=== PATIENT | male | born 1965 | race Caucasian/White ===

== ENCOUNTER 2025-08-21 12:05 | Emergency (ER) | payer OTHER, SELFPAY ==
--- OUTSIDE RECORDS SUMMARY | 2023-05-31 06:44 | XMS_ITS | Encounter Summary ---
Author Organization [facility] Healthcare Address [address] [place] [address] Care Team Providers Care Pond Sawyer Name Role Phone JavierDeisy PT Unavailable Unavailable Arron Sherwood Primary Care Provider Reason for Visit * Diagnostic Imaging (Routine) - Closed Specialty Diagnoses / Procedures Referred By La escobedo Referred To Contact Diagnoses Right knee pain, unspecified chronicity Procedures XR Pelvis 1 or 2 Views Robinson Tucker PA [address] [place] [address] Phone: tel: fax: Referral ID Status Reason Start Date Expiration Date Visits Re quested Visits Authorized [id number] Closed 05/31/2023 06/29/2024 1 1 Encounter Details Date Type Department Care Team (Late st Contact Info) Description 05/31/2023 7:44 AM CDT Hospital Encounter [facility] Medical Group Orthopedics and Sports Medicine [address] [facility] [address] [id number] Social History Tobacco Use Types Packs/Day Years Used Date Smoking Tobacco: Former Cigarettes 1 27 S tarted: 08/27/1984 Smokeless Tobacco: Former Alcohol Use Standard Drinks/Week Comments Yes 0 (1 standard drink = 0.6 oz pur e alcohol) PHQ-2 Answer Date Recorded PHQ-2 Total Score (If total score is 3 or more points, staff should administer the PHQ-9) 0 05/08/2025 AUDIT-C Answer Date Recorded Q1: How often do you have a drink containing alc ohol? Monthly or less 05/08/2025 Q2: How many drinks containi ng alcohol do you have on a typical day when you are drinking? 1 or 2 05/08/2025 Q3: How often do you have si x or more drinks on one occasion? Never 05/08/2025 Personal Safety Answer Date Recorded Have you ever been in or are you currently in a harmful physical or emotional relationship or is someone making you feel afraid or unsafe? 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 Author -[facility] Behavioral [facility] Iza Rincon RN Note: Patient will establish a comfort-function goal and identify the pain level that will allow the patient to perform desired activities and achieve an acceptable quality of life. -Pain Behavioral Health Iza Rincon RN Note: Patient would like to be able to bowl and get in and out of car with less pain documented as of this encounter Procedures Procedure Name Priority Date/Time Associated Diagnosis Comments XR PELVIS 1 OR 2 VIEWS Schedule Routine, Read Routine (OP Routine) 05/31/2023 1:27 PM CDT Primary osteoarthritis of right knee documented in this encounter Results * XR Pelvis 1 or 2 Views (05/31/2023 1:27 PM CDT) Anatomical Region Laterality Modality Body, Pelvis N/A Digital Radiogra phy Narrative 06/01/2023 11:58 AM CDT X-ray of the pelvis reviewed and interpreted. There is no evidence of fracture, subluxation, or bony abnormality. Moderate degenerative changes present of bilateral hips including joint space narrowing, subchondral sclerosis, and osteophyte formation. Robinson WHEAT IMG XR PROCEDURES Deja l Result documented in this encounter Visit Diagnoses Not on filedocumented in this encounter Care Teams Pond Sawyer Relationship Specialty Start Date End Date Arron Sherwood PA [address] [place] [address] DR T[address] [place] [id number] PCP - General Internal Medicine 07/18/22 Deisy Herrera, PT Physical Therapist Physical Therapy 12/30/21 08/12/23 documented as of this encounter
--- OUTSIDE RECORDS SUMMARY | 2023-05-31 06:44 | XMS_ITS | Encounter Summary ---
Author Organization [facility] Healthcare Address [address] [place] [address] Care Team Providers Care Maintenance Shop Manager Name Role Phone JavierDeisy PT Unavailable Unavailable Arron Sherwood Primary Care Provider Encounter Details Date Type Department Care Team (Late st Contact Info) Description 05/31/2023 7:44 AM CDT Hospital Encounter 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 Author -Pain Behavioral [facility] No Iza Yanes RN Note: Patient will establish a comfort-function goal and identify the pain level that will allow the patient to perform desired activities and achieve an acceptable quality of life. -Pain Behavioral Health No Iza Yanes RN Note: Patient would like to be able to bowl and get in and out of car with less pain documented as of this encounter Procedures Procedure Name Priority Date/Time Associated Diagnosis Comments XR KNEE RIGHT 4 OR MORE VIEWS Schedule Routine, Read Routine (OP Routine) 05/31/2023 1:27 PM CDT Primary osteoarthritis of right knee documented in this encounter Results * XR Knee Right 4 or More Views (05/31/2023 1:27 PM CDT) Anatomical Region Laterality Modality Lower Extremities, Knee Right Digital Radiography Narrative 06/01/2023 12:00 PM CDT Views of the right knee were reviewed and interpreted today. No evidence fracture or destructive osseous lesion. Tricompartmental degenerative changes noted with joint space narrowing, osteophyte formation, subchondral sclerosis. Varus deformity noted. Loose body noted in lateral compartment best viewed PA view. Robinson WHEAT IMG XR PROCEDURES Deja l Result documented in this encounter Visit Diagnoses Not on filedocumented in this encounter Care Teams Maintenance Shop Manager Relationship Specialty Start Date End Date Arron Sherwood PA [address] [place] [address] DR [address] [place] [address] PCP - General Internal Medicine 07/18/22 Deisy Herrera, PT Physical Therapist Physical Therapy 12/30/21 08/12/23 documented as of this encounter
--- NOTE | ~2025-08-21 | XR_ITS ---
EXAMINATION: XR chest 2V DATE: 08/21/2025 12:36 INDICATION: Cough and shortness of breath TECHNIQUE: PA and lateral views of the chest were obtained. COMPARISON: None FINDINGS: The lungs are clear with no focal airspace opacities, pulmonary edema, pleural effusion or pneumothorax. The cardiomediastinal silhouette is normal. Mild thoracic kyphosis with moderate spondylosis and mild anterior wedging of a few lower thoracic vertebral bodies. Likely cholecystectomy clips in the upper abdomen. IMPRESSION: 1. No acute cardiopulmonary disease. Reviewed, dictated and finalized at location A. PLOYMENT SPECIALIST
--- OUTSIDE RECORDS SUMMARY | 2025-08-21 12:12 | XMS_ITS | Clinical Summary ---
Author Organization [facility] lin Address [address] [place] [address] Care Team Providers Care Power Sweeper Operator Name Role Phone Jared Stuart MD Primary Care Provi abhi Medications No known medications Social History Tobacco Use Types Packs/Day Years Used Date Smoking Tobacco: Never Assessed Sex and Gender Information Value Date Recorded Sex Assigned at Not on file Legal Sex Male 11:17 AM EDT Gender Identity Not on file Sexual Orientation Not on file Plan of Treatment Not on file Medical Devices Not on file Care Teams Power Sweeper Operator Relationship Specialty Start Date End Date Jared Stuart MD [address] [facility] [place] [phone] PCP - General Internal Medicine 06/04/20
--- OUTSIDE RECORDS SUMMARY | 2025-08-21 12:12 | XMS_ITS | Encounter Summary ---
Author Organization [facility] Address [address] [place] [address] Phone Care Team Providers Care Electrician Wiring Name Role Phone Jared Stuart MD Primary Care Provi abhi Deisy Herrera PT Unavailable Unavailable Arron Sherwood Primary Care Provider Nithin Dennis MD Unavailable [phone] Robinson Tucker Unavailable [phone] Collin García DPM Unavailable [phone] Encounter Details Date Type Department Care Team (Late st Contact Info) Description 12/26/2017 Orders Only [facility] ProviderMarjorie MD [address] [place] [address] Social History Tobacco Use Types Packs/Day Years Used Date Smoking Tobacco: Former Smokeless Tobacco: Former Alcohol Use Standard Drinks/Week Comments No 0 (1 standard drink = 0.6 oz pur e alcohol) Sex and Gender Information Value Date Recorded Sex Assigned at Not on file 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 us Historical Provider LAB BLOOD ORDERABLES Deja l Result documented in this encounter Visit Diagnoses Not on filedocumented in this encounter Care Teams Electrician Wiring Relationship Specialty Start Date End Date aJred Stuart MD PCP - General 11/24/16 07/17/22 Arron Sherwood PA [address] [facility] [address] [place] [address] PCP - General Internal Medicine 07/18/22 Deisy Herrera, PT Physical Therapist Physical Therapy 12/30/21 08/12/23 Nithin Dennis MD [address] [facility] [address] [place] [address] Surgeon Orthopedic Surgery 08/13/23 12/12/23 Robinson Tucker PA [address] [facility] [address] [place] [address] Orthopedic Surgery 09/18/23 12/12/23 Collin García DPM [address] [place] [address] [place] [address] Consulting Physician Foot and Ankle Surg 05/08/25 [facility] Optometry 12/31/24 documented as of this encounter
--- OUTSIDE RECORDS SUMMARY | 2025-08-21 12:12 | XMS_ITS | Clinical Summary ---
Author Organization [facility] Marce Duarte Address [address] [facility] [place] [address] Care Team Providers Care Hand Candy Cutter Name Role Phone Unavailable Primary Care Provider Unavailabl e Allergies Active Allergy Reactions Criticality Noted Date Comments Iodinated Contrast Media Other (See Comments) High 02/18/2025 Reaction: Erythema, , Iodine Hives High 02/18/2025 Reaction: Flushing, ok with topical iodine Lisinopril Itching,Other (See Comments) Low 02/18/2025 Reaction: Itching, , Reaction: Itching, , Reaction: Itching, Penicillins Hives,Itching,Other (See Comments) High 02/18/2025 Reaction: Rash, , , , Reaction: Hives, Itching, Medications aspirin (ECOTRIN EC) 81 mg Tablet, Delayed Release (E.C.) Take 81 mg by mouth daily. Active citalopram (CeleXA) 20 mg tablet Take 20 mg by mouth daily. 5 Active empagliflozin (JARDIANCE) 25 mg tablet Take 25 mg by mouth daily. 4 Active fluticasone propionate (FLONASE) 50 mcg/spray [place], Suspension nasal inhaler Administer 2 Sprays in each nostril daily. 2 Active hydroCHLOROthia zide 12.5 mg tablet Take 12.5 mg by mouth daily. 5 Active irbesartan-hydr oCHLOROthiazide (AVALIDE) 300-12.5 mg tablet Take 1 Tablet by mouth daily. 5 Active rosuvastatin (CRESTOR) 40 mg tablet Take 40 mg by mouth daily. 5 Active Active Problems No known active problems Encounters Date Type Department Care Team Description 07/14/2025 External Device Data [facility] ABSTRACTION Provider, Abstract 06/30/2025 External Device Data [facility] ABSTRACTION Provider, Abstract 06/24/2025 External Device Data [facility] ABSTRACTION Provider, Abstract 06/23/2025 External Device Data [facility] ABSTRACTION Provider, Abstract from Last 3 Months Social History Tobacco Use Types Packs/Day Years Used Date Smoking Tobacco: Never Assessed Sex and Gender Information Value Date Recorded Sex Assigned at Not on file Legal Sex Male 3:02 PM CDT Gender Identity Not on file Sexual Orientation Not on file Last Filed Vital Signs Vital Sign Reading Time Taken Comments Blood Pressure 102/60 02/18/2025 3:29 PM CDT Pulse 86 02/18/2025 3:29 PM CDT Temperature 36.8 C (98.3 F) 02/18/2025 3:29 PM CDT Respiratory Rate 16 02/18/2025 3:29 PM CDT Oxygen Saturation 96% 02/18/2025 3:29 PM CDT Inhaled Oxygen Concentration - - Weight 126.6 kg (279 lb) 02/18/2025 3:29 PM CDT Height 180.3 cm (5' 11) 02/18/2025 3:29 PM CDT Body Mass Index 38.91 02/18/2025 3:29 PM CDT Plan of Treatment Health Maintenance Due Date Last Done Comments DIABETES ANNUAL RETINAL EXAM 1984 DIABETES MICROALBUMIN ANNUAL SCREEN 1984 LDL CHOLESTEROL ANNUAL 1984 HEPATITIS B VACCINES (1 of 3 - 19+ 3-dose series) 1985 FIT-DNA Q 3 years 2011 FIT/FOBT Q 1 year 2011 Flex Sig/CT Colonography Q 5 years 2011 ZOSTER VACCINE (1 of 2) 2016 DTAP/TDAP/TD VACCINES (3 - T d or Tdap) 09/11/2023 09/11/2013, 04/23/2009 INFLUENZA VACCINE (#1) 2025 DIABETES HBA1C Q 6 MONTHS 06/29/2025 12/27/2024 DIABETES ANNUAL FOOT EXAM 12/31/2025 12/31/2024 COLORECTAL SCREENING 06/19/2034 06/19/2024, 06/19/2024, 01/15/2019, Additional history exists Colorectal Cancer Screening 06/19/2034 Insurance [facility] [id number]
--- OUTSIDE RECORDS SUMMARY | 2025-08-21 12:12 | XMS_ITS | Encounter Summary ---
Author Organization [facility] Address [address] [place] [address] Care Team Providers Care Tool Room Supervisor Name Role Phone Unavailable Primary Care Provider Unavailabl e Encounter Details Date Type Department Care Team (Late st Contact Info) Description 10/13/2021 Lab Requisition [facility] [address] [facility] [place] [place] [phone] Angel Robles Jr., MD [address] [facility] [address] [place] [address] Social History Tobacco Use Types Packs/Day Years Used Date Smoking Tobacco: Never Assessed Sex and Gender Information Value Date Recorded Sex Assigned at Not on file Legal Sex Male 11:29 AM LEAF BINNER Gender Identity Not on file Sexual Orientation Not on file documented as of this encounter Plan of Treatment Not on file documented as of this encounter Procedures Procedure Name Priority Date/Time Associated Diagnosis Comments DERMATOPATHOLOGY Routine 10/12/2021 12:0 0 AM LEAF BINNER documented in this encounter Results * DERMATOPATHOLOGY (10/12/2021 12:00 AM LEAF BINNER) Case Report Dermatopathology Report Case: [id number] Authorizing Provider: Angel Robles Jr., MD Collected: 10/12/2021 12:00 AM Ordering Location: [facility] Received: 10/13/2021 11:44 AM Pathologist: Adrianna Rdz MD Specimen: Skin, left distal radial palmar index finger 2 4:31 PM [facility] Final Diagnosis Specimen A. SKIN, left distal radial palmar index finger: VERRUCA VULGARIS (B07.8) 2 4:31 PM [facility] at [address] Clinical History Verruca vulgaris. 2 4:31 PM [facility] DERMATOPATH[facility]Y [facility] Gross Description Specimen A: Received is one formalin filled container labeled with the patient's name and designated left distal radial palmar index finger. The specimen consists of a shave biopsy measuring 12x9x2 mm. Jar 0. 2 4:31 PM [facility] DERMATOPATHOLOGY [facility] Microscopic Description Specimen A. SKIN, left distal radial palmar index finger: There is digitated epidermal hyperplasia, hypergranulosis, vacuolated granular layer cells, and compact hyperorthokeratosis . 2 4:31 PM [facility] DERMATOPATHOLOGY [facility]ORAT[facility] Disclaimer An external and internal positive and negative controls are appropriate for the histochemical, immunohistochemical and immunofluorescence stain(s) in this case (if any), except where stated explicitly. The performance characteristics of the stain(s) cited in this report were developed and its performance characteristic determined by the Dermatopathology Laboratory at [facility], directed by Dr. Shawn Rdz. These tests need not be, and therefore are not, approved by the [place] Food and Drug Administration. The tests are used for clinical purposes. Billing Codes Specimen Charges Stain Charges 85601 1 2 4:31 PM [facility] DERMATOPATHOLOGY [facility] Embedded Images 2 4:31 PM [facility] DERMATOPATH[facility]Y [facility] Pathology/Cytolog y TISSUE SPECIMEN FROM SKIN / Unknown 10/12/2021 10/13/2021 11:44 AM [facility] Angel Robles Jr., MD LAB - PATHOLOGY/CYTOLOG Y ORDERABLES Final Result DERMATOPATHOLOGY LABORATORY [facility] - Department of Dermatology [address], [address] [phone] documented in this encounter Visit Diagnoses Not on filedocumented in this encounter
--- OUTSIDE RECORDS SUMMARY | 2025-08-21 12:12 | XMS_ITS | Encounter Summary ---
Author Organization [facility] Healthcare Address [address] [place] [address] Care Team Providers Care Inspection Manager Name Role Phone Arron Sherwood Primary Care Provider Collin García DPM Unavailable [phone] Reason for Visit * Reason Onset Date Comments Chest Pain 08/21/2025 Shortness of Breath 08/21/2025 Encounter Details Date Type Department Care Team (Late st Contact Info) Description 08/21/2025 Nurse Triage [facility] Medical Group Primary Care at [address] [place] [address] Arron Sherwood PA [address] [place] [address] [address] [place] [address] Social History Tobacco Use Types Packs/Day Years [...] on file Legal Sex Male 11:24 PM GLOBAL VP CREATIVE + CONTENT MARKETING Gender Identity Not on file Sexual Orientation Not on file documented as of this encounter Miscellaneous Notes * Telephone Encounter - Madalyn Brown RN - 08/21/2025 10:52 AM GLOBAL VP CREATIVE + CONTENT MARKETING Access Center Nurse Triage: Reason for Conversation Chest Pain and Shortness of Breath Background ROBIN 05/08/25 I spoke to the patient's . His symptoms began suddenly on Sunday. He has sore throat pain, chest pains that radiates to his back. He is coughing frequently. No fever. +headache. Pain in his backis between the shoulder blades. He also has pain between the nipples in the middle of his chest. Healso has discomfort at the collarbone area, which is where his throat pain is. Pain in his back andchest has been constant since Sunday. He did take Muccinex DM and it did not help hardly at all. No wheezing. Pain in front of his chest (at the base of his throat) is burning and is moderate to severe. It makes it hard to swallow. He is able to swallow liquids. Distant hx of GERD but he hasn't had any problems in years. No shoulder or jaw pain. Some shortness of breath with activity but also at rest. Painacross the shoulder blades is an ache and he rates that as mild to moderate. He states this does not feel like GERD to him. Disposition indicated is ED/UCC Now or to Office with PCP approval. No same day availability in theoffice today. What do you advise? Provider contacted via secure chat for ED disposition consult. Recommendation from provider:Send toRCC/UC I discussed options with the patient and his . She will tae him to the [facility] location. Disposition Go to ED/UCC Now (or to Office With PCP Approval) Reason for Disposition Chest pain lasting longer than 5 minutes and occurred in last 3 days (72 hours) (Exception: Feels exactly the same as previously diagnosed heartburn and has accompanying sour taste in mouth.) Protocols Used Chest [id number] AL VP CREATIVE + CONTENT MARKETING * Telephone Encounter - Madalyn Brown RN - 08/21/2025 10:45 AM GLOBAL VP CREATIVE + CONTENT MARKETING Regarding: Patient's chest is hurting really bad, and his upper back along with cold like symptoms ----- Message from Chelita Allen sent at 08/21/2025 9:53 AM GLOBAL VP CREATIVE + CONTENT MARKETING ----- Symptom Based Call Chief Complaint(s): Patient's chest is hurting really bad, and his upper back along with cold like symptoms Duration: Since Sunday What type of symptom(s) is the patient experiencing? Red Flag. Is the patient concerned they are experiencing a medical emergency requiring an ambulance? No Additional Comments: Patient's Shaheed verified on HIPAA says the patient has been sick with a sore throat, bad chest pain, in the middle. He says when he takes a deep breath his back hurts. Patient has had a headache off and on. Ears have pressure in them. Trouble sleeping. Patients shaheed will be who you will speak with . Does message need to be routed? Yes-Action Needed AL VP CREATIVE + CONTENT MARKETING documented in this encounter Plan of Treatment Scheduled Procedures [...] less pain documented as of this encounter Visit Diagnoses Not on filedocumented in this encounter Care Teams Inspection Manager Relationship Specialty Start Date End Date Arron Sherwood PA [address] [place] [address] [place] [address] PCP - General Internal Medicine 07/18/22 Collin García DPM [address] [facility] [place] [address] Consulting Physician Foot and Ankle Surg 05/08/25 [facility] Optometry 12/31/24 documented as of this encounter
--- OUTSIDE RECORDS SUMMARY | 2025-08-21 12:12 | XMS_ITS | Clinical Summary ---
Author Organization [facility] Address [address] [place] [address] Care Team Providers Care Plan Manager Name Role Phone Unavailable Primary Care Provider Unavailabl e Source Comments [facility],non-owned Affiliates and Associated Physician Practices is amultiple site organization consisting of ambulatory clinics and hospital sitesin [place], [place], [place] and [place]. This disclosure is being madepursuant to the Care Everywhere program and may not contain all information available regarding this patient. Last updated 18.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 Gender Identity Not on file Sexual Orientation Not on file Plan of Treatment Health Maintenance Due Date Last Done Comments COLOGUARD (AGES 45-75) - COL ON CA SCREENING 1966 COLON MONITORING 1966 COLONOSCOPY - COLON CA SCREENING 1966 CT COLONOGRAPHY - COLON CA SCREENING 1966 Colorectal Cancer Screening 1966 FIT - COLON CA SCREENING 1966 FLEX SIG - COLON CA SCREENING 1966 LIPID TESTING 1966 HIV SCREENING 1981 HEPATITIS C SCREENING 09/12/1984 DTAP/TDAP/TD VACCINES (1 - Tdap) 1985 HEPATITIS B VACCINE (1 of 3 - 19+ 3-dose series) 1985 PNEUMOCOCCAL VACCINE 50+ (1 of 1 - PCV) 2016 ZOSTER VACCINE (1 of 2) 2016 DEPRESSION SCREENING 08/27/2024 COVID-19 VACCINE (1 - 2024-2 6 season) 2025 INFLUENZA VACCINE (#1) 2025 HIB VACCINE Aged Out No longer eligi ble based on patient's age to complete this topic HPV VACCINE Aged Out No longer eligi ble based on patient's age to complete this topic MENINGOCOCCAL (Group B) VACC INE SHARED DECISION-MAKING Aged Out No longer eligibl e based on patient's age to complete this topic MENINGOCOCCAL GROUPS A/C/Y/W VACCINE Aged Out No longer eligible b ased on patient's age to complete this topic Insurance
--- OUTSIDE RECORDS SUMMARY | 2025-08-21 12:12 | XMS_ITS | Clinical Summary ---
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 Name Role Phone Lico Sherwood Primary Care Provider Collin García DPM Unavailable [phone] Allergies Active Allergy Reactions Criticality Noted Date Comments Iodinated Contrast Media Other (See comments) High Reaction: Erythema, , Iodine Flushing (skin) High Reaction: Flushing, ok with topical iodine Lisinopril Other (See comments),Itching Low Reaction: Itching, , Reaction: Itching, , Reaction: Itching, Penicillins Other (See comments),Hives,Itch ing High Reaction: Rash, , , , Reaction: Hives, Itching, Medications cholecalciferol (VITAMIN D-3) 2000 unit tablet 1 po q day 90 tablet 3 1 Active fluticasone propionate (FLONASE) 50 mcg/actuation nasal spray Administer 2 sprays into each nostril daily 1 each 2 Active aspirin 81 mg enteric coated tablet Take 1 tablet (81 mg total) by mouth daily Active rosuvastatin (CRESTOR) 40 mg tablet Take 1 tablet (40 mg total) by mouth daily 90 tablet 3 5 Active citalopram (CeleXA) 20 mg tablet TAKE 1 TABLET DAILY 90 tablet 3 5 Active irbesartan-hydr oCHLOROthiazide (AVALIDE) 300-12.5 mg per tablet TAKE 1 TABLET DAILY 90 tablet 3 5 Active empagliflozin (JARDIANCE) 25 mg tabletIndicatio ns:type 2 diabetes mellitus Take 1 tablet (25 mg total) by mouth daily Replaces 10 mg on next fill 90 tablet 3 5 Active ezetimibe (ZETIA) 10 mg tablet TAKE 1 TABLET DAILY 90 tablet 3 5 Active Active Problems Problem Noted Date Diagnosed Date Class 2 severe obesity due t o excess calories with serious comorbidity and body mass index (BMI) of 39.0 to 39.9 in adult 09/01/2024 History of colon polyps 03/06/2024 PADMA (generalized anxiety disorder) 12/13/2023 Complex tear of medial meniscus of right knee Atherosclerosis of aorta 08/13/2023 Pure hypercholesterolemia 08/11/2022 Assessment & Plan (05/08/2025 7:23 AM CDT): Counseled on heart healthy diet exercise Assessment & Plan (12/31/2024 12:49 PM CDT): Counseled on heart healthy diet, exercise Former smoker 08/10/2022 Contusion of left leg, subsequent encounter 11/26 Degenerative lumbar spinal stenosis 01/12/2021 DDD (degenerative disc disease), lumbar 01/07/20 21 Lumbar radiculopathy 12/01/2020 Insomnia secondary to chronic pain 12/01/2020 Chronic bilateral low back pain without sciatica 11/09/2020 Assessment & Plan (11/09/2020 10:17 AM CDT): Low back for months and referral to l ant Thigh if stand awahile trial pt and see if helps pain Ref erral next. Prior xry difuse djd in t and upper l spine. Physical exam, annual 07/06/2020 Assessment & Plan (07/20/2021 11:23 AM [employer]): Well exam low fall risk . depession screen Nl and cognitive scrren nl colon up to date. psa up aot date. Declines flu shots And hac covid shots Consider puenmin Shots. ekg axis -8, rate 68 nsr left axis other lares nl Assessment & Plan (07/06/2020 10:09 AM [employer]): Low fal risk derpison screen nl cog screen nl up to date on Colon pxsaz on return declines flu shots. Not sure if nataliia take a covid rashard as had. Colon adenoma 12/04/2018 Assessment & Plan (12/04/2018 3:43 PM CDT): Repeat 2 yrs Abnormal LFTs 08/07/2018 Assessment & Plan (04/16/2019 4:18 PM CDT): Near nl with wt off Assessment & Plan (12/04/2018 3:41 PM CDT): Alt mildly up at 61 and stable. Risk for scarring discussed Assessment & Plan (08/07/2018 3:21 PM [employer]): Alt drooped from 60 to 50 and ast droopped to nl as well so diet has worked Type 2 diabetes mellitus with hyperlipidemia Assessment & Plan (05/08/2025 7:21 AM CDT): The patient was counseled on a heart-healthy, diabetic-friendly diet, as well as life-style modification. Education provided on the diagnosis and risks of the disease. We will continue to monitor routine labs. Additionally, the patient was counseled on routine diabetic eye exams, foot exams, and other preventive care. Assessment & Plan (12/31/2024 12:48 PM CDT): The patient was counseled on a heart-healthy, diabetic-friendly diet, as well as life-style modification. Education provided on the diagnosis and risks of the disease. We will continue to monitor routine labs. Additionally, the patient was counseled on routine diabetic eye exams, foot exams, and other preventive care. Assessment & Plan (09/01/2024 8:54 AM [employer]): The patient was counseled on a heart-healthy, diabetic-friendly diet, as well as life-style modification. Education provided on the diagnosis and risks of the disease. We will continue to monitor routine labs. Additionally, the patient was counseled on routine diabetic eye exams, foot exams, and other preventive care. Assessment & Plan (05/05/2024 9:00 AM CDT): The patient was counseled on a heart-healthy, diabetic-friendly diet, as well as life-style modification. Education provided on the diagnosis and risks of the disease. We will continue to monitor routine labs. Additionally, the patient was counseled on routine diabetic eye exams, foot exams, and other preventive care. Assessment & Plan (04/21/2024 9:32 AM CDT): The patient was counseled on a heart-healthy, diabetic-friendly diet, as well as life-style modification. Education provided on the diagnosis and risks of the disease. We will continue to monitor routine labs. Additionally, the patient was counseled on routine diabetic eye exams, foot exams, and other preventive care. Assessment & Plan (12/13/2023 8:51 AM CDT): The patient was counseled on a heart-healthy, diabetic-friendly diet, as well as life-style modification. Education provided on the diagnosis and risks of the disease. We will continue to monitor routine labs. Additionally, the patient was counseled on routine diabetic eye exams, foot exams, and other preventive care. Assessment & Plan (08/13/2023 7:50 AM [employer]): The patient was counseled on a heart-healthy, diabetic-friendly diet, as well as life-style modification. Education provided on the diagnosis and risks of the disease. We will continue to monitor routine labs. Additionally, the patient was counseled on routine diabetic eye exams, foot exams, and other preventive care. Assessment & Plan (02/09/2023 7:41 AM CDT): The patient was counseled on a heart-healthy, diabetic-friendly diet, as well as life-style modification. Education provided on the diagnosis and risks of the disease. We will continue to monitor routine labs. Additionally, He was counseled on routine diabetic eye exams, foot exams, and other preventive care. Assessment & Plan (08/11/2022 7:52 AM [employer]): The patient was counseled on a heart-healthy, diabetic-friendly diet, as well as life-style modification. Education provided on the diagnosis and risks of the disease. We will continue to monitor routine labs. Additionally, the patient was counseled on routine diabetic eye exams, foot exams, and other preventive care. Assessment & Plan (04/10/2022 3:11 PM CDT): The patient was counseled on a heart-healthy, diabetic-friendly diet, as well as life-style modification. Education provided on the diagnosis and risks of the disease. We will continue to monitor routine labs. Additionally, He was counseled on routine diabetic eye exams, foot exams, and other preventive care. Assessment & Plan (12/08/2021 3:52 PM CDT): ldl at 645 and great and keep tight given risk Your cholesterol in the form of ldl (bad) cholesterol,hdl(good) cholesterol and triglycerides are monitored. The triglycerides respond to reduction/controll of your simple carbs/sugars In such items as sugared soda/sweet tea along with fruit juices(containing natural sugar) even if no added sugar is added. LDL cholesterol is reduced with reducing daily intake of fats and rashard. saturated fats. The monosaturated fats like olive oil are not harmful except in the calories they contained. Whole milk cheese needs to be remembered along with whole milk products And limited. Assessment & Plan (11/23/2021 10:02 AM CDT): Watch diet given steroidsgiven and effects on sugar and be rashard careful Assessment & Plan (07/20/2021 11:15 AM [employer]): a1c at 6.0 and contorlleld sdiscused injectable trulicity or similar and not interested. Given card issue will suggest jareince 10 to start ldl at 49 and great. Your cholesterol in the form of ldl (bad) cholesterol,hdl(good) cholesterol and triglycerides are monitored. The triglycerides respond to reduction/controll of your simple carbs/sugars In such items as sugared soda/sweet tea along with fruit juices(containing natural sugar) even if no added sugar is added. LDL cholesterol is reduced with reducing daily intake of fats and rashard. saturated fats. The monosaturated fats like olive oil are not harmful except in the calories they contained. Whole milk cheese needs to be remembered along with whole milk products And limited.Diabetes management or controll revolves around several core concepts : weight controll,controlling the intake of rapidly absorbed sugars(read simple carbs that get rapidly absorbed such as sweetened tea,sugared soda,fruit juices or portions of fruit over 1/2 cup at a time) as well at the need to increase the sugar burned up through an n increase in your baseline activity.Breads,potatotes(white,yellow,sweet are all the same),most cereals and noodles all breakdown to sugar rapidly. This rapid breakdown or absorption challenges the body into handling this surge of sugar. The more these factors are controlled the more the sugar will be controlled. Assessment & Plan (03/23/2021 10:42 AM CDT): a1c droopepd f rom 6.3 to 5.8 and wnt h ere or lower and ckep meds ssame. ldl at 43 and alst 53 so Great for cardiac protection and con tmeds as onYour cholesterol in the form of ldl (bad) cholesterol,hdl(good) cholesterol and triglycerides are monitored. The triglycerides respond to reduction/controll of your simple carbs/sugars In such items as sugared soda/sweet tea along with fruit juices(containing natural sugar) even if no added sugar is added. LDL cholesterol is reduced with reducing daily intake of fats and rashard. saturated fats. The monosaturated fats like olive oil are not harmful except in the calories they contained. Whole milk cheese needs to be remembered along with whole milk products And limited.Diabetes management or controll revolves around several core concepts : weight controll,controlling the intake of rapidly absorbed sugars(read simple carbs that get rapidly absorbed such as sweetened tea,sugared soda,fruit juices or portions of fruit over 1/2 cup at a time) as well at the need to increase the sugar burned up through an n increase in your baseline activity.Breads,potatotes(white,yellow,sweet are all the same),most cereals and noodles all breakdown to sugar rapidly. This rapid breakdown or absorption challenges the body into handling this surge of sugar. The more these factors are controlled the more the sugar will be controlled. Assessment & Plan (11/09/2020 10:20 AM CDT): ldl at 53 and great and no chagsd in medsd. Work on diet and cont medsYour cholesterol in the form of ldl (bad) cholesterol,hdl(good) cholesterol and triglycerides are monitored. The triglycerides respond to reduction/controll of your simple carbs/sugars In such items as sugared soda/sweet tea along with fruit juices(containing natural sugar) even if no added sugar is added. LDL cholesterol is reduced with reducing daily intake of fats and rashard. saturated fats. The monosaturated fats like olive oil are not harmful except in the calories they contained. Whole milk cheese needs to be remembered along with whole milk products And limited. Assessment & Plan (07/06/2020 10:03 AM [employer]): ldl at 60 and good and nochazgs in meds . Your cholesterol in the form of ldl (bad) cholesterol,hdl(good) cholesterol and triglycerides are monitored. The triglycerides respond to reduction/controll of your simple carbs/sugars In such items as sugared soda/sweet tea along with fruit juices(containing natural sugar) even if no added sugar is added. LDL cholesterol is reduced with reducing daily intake of fats and rashard. saturated fats. The monosaturated fats like olive oil are not harmful except in the calories they contained. Whole milk cheese needs to be remembered along with whole milk products And limited. Assessment & Plan (02/26/2020 8:11 AM CDT): The patient was counseled on a heart-healthy, diabetic-friendly diet, as well as life-style modification. Education provided on the diagnosis and risks of the disease. We will continue to monitor routine labs. Additionally, He was counseled on routine diabetic eye exams, foot exams, and other preventive care. Assessment & Plan (04/16/2019 4:21 PM CDT): ldl dramatic drop to 68 and cont here or drop to get even lower. On fulqetia and crestor 40 alreadyYour cholesterol in the form of ldl (bad) cholesterol,hdl(good) cholesterol and triglycerides are monitored. The triglycerides respond to reduction/controll of your simple carbs/sugars In such items as sugared soda/sweet tea along with fruit juices(containing natural sugar) even if no added sugar is added. LDL cholesterol is reduced with reducing daily intake of fats and rashard. saturated fats. The monosaturated fats like olive oil are not harmful except in the calories they contained. Whole milk cheese needs to be remembered along with whole milk products And limited. Assessment & Plan (12/04/2018 3:40 PM CDT): ldl at 129 and on 40 crestor. Add zetia 20 and see if can't get to 100 or less. Your cholesterol in the form of ldl (bad) cholesterol,hdl(good) cholesterol and triglycerides are monitored. The triglycerides respond to reduction/controll of your simple carbs/sugars In such items as sugared soda/sweet tea along with fruit juices(containing natural sugar) even if no added sugar is added. LDL cholesterol is reduced with reducing daily intake of fats and rashard. saturated fats. The monosaturated fats like olive oil are not harmful except in the calories they contained. Whole milk cheese needs to be remembered along with whole milk products And limited. Assessment & Plan (08/07/2018 3:22 PM [employer]): ldl t 99 and Barely ok on 40mg creastor and watch dieet as will need to add meds if not aboe to drop any.Your cholesterol in the form of ldl (bad) cholesterol,hdl(good) cholesterol and triglycerides are monitored. The triglycerides respond to reduction/controll of your simple carbs/sugars In such items as sugared soda/sweet tea along with fruit juices(containing natural sugar) even if no added sugar is added. LDL cholesterol is reduced with reducing daily intake of fats and rashard. saturated fats. The monosaturated fats like olive oil are not harmful except in the calories they contained. Whole milk cheese needs to be remembered along with whole milk products And limited. Assessment & Plan (04/10/2018 6:15 PM CDT): ldl at 92 andc less then 100. hdl 39. The a1c droped to 5.9 g fro. 6l6. Great and keep it upYour cholesterol in the form of ldl (bad) cholesterol,hdl(good) cholesterol and triglycerides are monitored. The triglycerides respond to reduction/controll of your simple carbs/sugars In such items as sugared soda/sweet tea along with fruit juices(containing natural sugar) even if no added sugar is added. LDL cholesterol is reduced with reducing daily intake of fats and rashard. saturated fats. The monosaturated fats like olive oil are not harmful except in the calories they contained. Whole milk cheese needs to be remembered along with whole milk products And limited.Morbid obesity is a bmi of 40 or more. Targeted weight loss with portion controll(calorie restriction) ,increased basal activity Levels along with adding an exercise program to lead to gradual weight loss,.Any program of change from weight watchers. To [facility] [facility] system along with others work. Nocturia 06/18/2017 Assessment & Plan (08/07/2018 3:24 PM [employer]): Check psa on return Hypertension associated with diabetes 2015 Overview (11/29/2016): BENIGN HYPERTENSION Assessment & Plan (05/08/2025 7:21 AM CDT): Recommend DASH diet, heart healthy lifestyle, exercise. Discussed the risks of hypertension. Assessment & Plan (12/31/2024 12:48 PM CDT): Recommend DASH diet, heart healthy lifestyle, exercise. Discussed the risks of hypertension. Assessment & Plan (09/01/2024 8:54 AM [employer]): Recommend DASH diet, heart healthy lifestyle, exercise. Discussed the risks of hypertension. Assessment & Plan (05/05/2024 9:00 AM CDT): Recommend DASH diet, heart healthy lifestyle, exercise. Discussed the risks of hypertension. Assessment & Plan (04/21/2024 9:32 AM CDT): Recommend DASH diet, heart healthy lifestyle, exercise. Discussed the risks of hypertension. Assessment & Plan (12/13/2023 8:52 AM CDT): Recommend DASH diet, heart healthy lifestyle, exercise. Discussed the risks of hypertension. Assessment & Plan (08/13/2023 7:50 AM [employer]): Recommend DASH diet, heart healthy lifestyle, exercise. Discussed the risks of hypertension. Assessment & Plan (02/09/2023 7:42 AM CDT): Recommend DASH diet, heart healthy lifestyle, exercise. Discussed the risks of hypertension. Assessment & Plan (08/10/2022 4:26 PM [employer]): Recommend DASH diet, heart-healthy lifestyle, exercise. Discussed the risks of hypertension. Assessment & Plan (04/10/2022 3:11 PM CDT): Recommend DASH diet, heart-healthy lifestyle, exercise. Discussed the risks of hypertension. Assessment & Plan (12/08/2021 3:51 PM CDT): The bp good and keep meds same and a1cs 6.4 and on 10 jardienc e and go to 25 and tighten sugarHypertension, Medical treament revolves around weight control, salt management, and meds when necessary. long as weight loss is necessary and you are able to drop weight we can cont to monitor the blood pressure and not add meds. Once the weight is not changing then it becomes nesessary to add meds to be able to reach the goal bp.Diabetes management or controll revolves around several core concepts : weight controll,controlling the intake of rapidly absorbed sugars(read simple carbs that get rapidly absorbed such as sweetened tea,sugared soda,fruit juices or portions of fruit over 1/2 cup at a time) as well at the need to increase the sugar burned up through an n increase in your baseline activity.Breads,potatotes(white,yellow,sweet are all the same),most cereals and noodles all breakdown to sugar rapidly. This rapid breakdown or absorption challenges the body into handling this surge of sugar. The more these factors are controlled the more the sugar will be controlled. Assessment & Plan (11/23/2021 10:02 AM CDT): Sat=kt retaining efffeddcts and bp on steroids so montiorHypertension, Medical treament revolves around weight control, salt management, and meds when necessary. long as weight loss is necessary and you are able to drop weight we can cont to monitor the blood pressure and not add meds. Once the weight is not changing then it becomes nesessary to add meds to be able to reach the goal bp.Hypertension, Medical treament revolves around weight control, salt management, and meds when necessary. long as weight loss is necessary and you are able to drop weight we can cont to monitor the blood pressure and not add meds. Once the weight is not changing then it becomes nesessary to add meds to be able to reach the goal bp. Assessment & Plan (07/20/2021 11:17 AM [employer]): The bp good and a1c 6.0 so cont meds as onHypertension, Medical treament revolves around weight control, salt management, and meds when necessary. long as weight loss is necessary and you are able to drop weight we can cont to monitor the blood pressure and not add meds. Once the weight is not changing then it becomes nesessary to add meds to be able to reach the goal bp. Assessment & Plan (03/23/2021 10:45 AM CDT): The bp better and ewxpe t to see more loss and dorp. With wt off the bp and susgar better and more will do soHypertension, Medical treament revolves around weight control, salt management, and meds when necessary. long as weight loss is necessary and you are able to drop weight we can cont to monitor the blood pressure and not add meds. Once the weight is not changing then it becomes nesessary to add meds to be able to reach the goal bp.Diabetes management or controll revolves around several core concepts : weight controll,controlling the intake of rapidly absorbed sugars(read simple carbs that get rapidly absorbed such as sweetened tea,sugared soda,fruit juices or portions of fruit over 1/2 cup at a time) as well at the need to increase the sugar burned up through an n increase in your baseline activity.Breads,potatotes(white,yellow,sweet are all the same),most cereals and noodles all breakdown to sugar rapidly. This rapid breakdown or absorption challenges the body into handling this surge of sugar. The more these factors are controlled the more the sugar will be controlled. Assessment & Plan (11/09/2020 10:19 AM CDT): The bp good and no cahds in meds and fasting Sugar 117 and check a1c on reutrn ufrine prtein nlHypertension, Medical treament revolves around weight control, salt management, and meds when necessary. long as weight loss is necessary and you are able to drop weight we can cont to monitor the blood pressure and not add meds. Once the weight is not changing then it becomes nesessary to add meds to be able to reach the goal bp.Diabetes management or controll revolves around several core concepts : weight controll,controlling the intake of rapidly absorbed sugars(read simple carbs that get rapidly absorbed such as sweetened tea,sugared soda,fruit juices or portions of fruit over 1/2 cup at a time) as well at the need to increase the sugar burned up through an n increase in your baseline activity.Breads,potatotes(white,yellow,sweet are all the same),most cereals and noodles all breakdown to sugar rapidly. This rapid breakdown or absorption challenges the body into handling this surge of sugar. The more these factors are controlled the more the sugar will be controlled. Assessment & Plan (07/06/2020 10:03 AM [employer]): The bp high nl and watch the a1c at 6.2 and good contrlllHypertension, Medical treament revolves around weight control, salt management, and meds when necessary. long as weight loss is necessary and you are able to drop weight we can cont to monitor the blood pressure and not add meds. Once the weight is not changing then it becomes nesessary to add meds to be able to reach the goal bp.Diabetes management or controll revolves around several core concepts : weight controll,controlling the intake of rapidly absorbed sugars(read simple carbs that get rapidly absorbed such as sweetened tea,sugared soda,fruit juices or portions of fruit over 1/2 cup at a time) as well at the need to increase the sugar burned up through an n increase in your baseline activity.Breads,potatotes(white,yellow,sweet are all the same),most cereals and noodles all breakdown to sugar rapidly. This rapid breakdown or absorption challenges the body into handling this surge of sugar. The more these factors are controlled the more the sugar will be controlled. Assessment & Plan (02/26/2020 8:10 AM CDT): Recommend DASH diet, heart-healthy lifestyle, exercise. Discussed the risks of hypertension. Assessment & Plan (08/21/2019 9:37 AM [employer]): Recommend DASH diet, heart healthy lifestyle, exercise. Discussed the risks of hypertension. Assessment & Plan (06/11/2019 12:02 PM CDT): Recommend DASH diet, heart-healthy lifestyle, exercise. Discussed the risks of hypertension. Assessment & Plan (04/16/2019 4:20 PM CDT): a1c to 6.1 and improved and urine proin nl. bp better with wt off and cont as doing and nataliia drop further if lose added Wt offHypertension, Medical treament revolves around weight control, salt management, and meds when necessary. long as weight loss is necessary and you are able to drop weight we can cont to monitor the blood pressure and not add meds. Once the weight is not changing then it becomes nesessary to add meds to be able to reach the goal bp.Diabetes management or controll revolves around several core concepts : weight controll,controlling the intake of rapidly absorbed sugars(read simple carbs that get rapidly absorbed such as sweetened tea,sugared soda,fruit juices or portions of fruit over 1/2 cup at a time) as well at the need to increase the sugar burned up through an n increase in your baseline activity.Breads,potatotes(white,yellow,sweet are all the same),most cereals and noodles all breakdown to sugar rapidly. This rapid breakdown or absorption challenges the body into handling this surge of sugar. The more these factors are controlled the more the sugar will be controlled. Assessment & Plan (12/04/2018 3:39 PM CDT): bp good and no ch angse, the a1c at 6.3 good. Hypertension, Medical treament revolves around weight control, salt management, and meds when necessary. long as weight loss is necessary and you are able to drop weight we can cont to monitor the blood pressure and not add meds. Once the weight is not changing then it becomes nesessary to add meds to be able to reach the goal bp.Diabetes management or controll revolves around several core concepts : weight controll,controlling the intake of rapidly absorbed sugars(read simple carbs that get rapidly absorbed such as sweetened tea,sugared soda,fruit juices or portions of fruit over 1/2 cup at a time) as well at the need to increase the sugar burned up through an n increase in your baseline activity.Breads,potatotes(white,yellow,sweet are all the same),most cereals and noodles all breakdown to sugar rapidly. This rapid breakdown or absorption challenges the body into handling this surge of sugar. The more these factors are controlled the more the sugar will be controlled. Assessment & Plan (08/07/2018 3:22 PM [employer]): bp good and a1c at 6.0 and was 5.9 but prior 6. 6. So better. Work to keep hereHypertension, Medical treament revolves around weight control, salt management, and meds when necessary. long as weight loss is necessary and you are able to drop weight we can cont to monitor the blood pressure and not add meds. Once the weight is not changing then it becomes nesessary to add meds to be able to reach the goal bp.Diabetes management or controll revolves around several core concepts : weight controll,controlling the intake of rapidly absorbed sugars(read simple carbs that get rapidly absorbed such as sweetened tea,sugared soda,fruit juices or portions of fruit over 1/2 cup at a time) as well at the need to increase the sugar burned up through an n increase in your baseline activity.Breads,potatotes(white,yellow,sweet are all the same),most cereals and noodles all breakdown to sugar rapidly. This rapid breakdown or absorption challenges the body into handling this surge of sugar. The more these factors are controlled the more the sugar will be controlled. Assessment & Plan (04/10/2018 6:21 PM CDT): The bp on high side and want tighter. Add hctz 12.5 and see if combo enoughHypertension, Medical treament revolves around weight control, salt management, and meds when necessary. long as weight loss is necessary and you are able to drop weight we can cont to monitor the blood pressure and not add meds. Once the weight is not changing then it becomes nesessary to add meds to be able to reach the goal bp.a 1c down to 5.9 and much better. No changesDiabetes management or controll revolves around several core concepts : weight controll,controlling the intake of rapidly absorbed sugars(read simple carbs that get rapidly absorbed such as sweetened tea,sugared soda,fruit juices or portions of fruit over 1/2 cup at a time) as well at the need to increase the sugar burned up through an n increase in your baseline activity.Breads,potatotes(white,yellow,sweet are all the same),most cereals and noodles all breakdown to sugar rapidly. This rapid breakdown or absorption challenges the body into handling this surge of sugar. The more these factors are controlled the more the sugar will be controlled. Assessment & Plan (11/28/2017 2:34 PM CDT): New dx awith a1c 6.6 and 6.5 diabetes. Start med at low dose with metformin if no indicatio getting it undere controll. Work from there. bp as well to high and driven by wt. Go to 320/25 on bp med and recheckHypertension, Medical treament revolves around weight control, salt management, and meds when necessary. long as weight loss is necessary and you are able to drop weight we can cont to monitor the blood pressure and not add meds. Once the weight is not changing then it becomes nesessary to add meds to be able to reach the goal bp.Diabetes management or controll revolves around several core concepts : weight controll,controlling the intake of rapidly absorbed sugars(read simple carbs that get rapidly absorbed such as sweetened tea,sugared soda,fruit juices or portions of fruit over 1/2 cup at a time) as well at the need to increase the sugar burned up through an n increase in your baseline activity.Breads,potatotes(white,yellow,sweet are all the same),most cereals and noodles all breakdown to sugar rapidly. This rapid breakdown or absorption challenges the body into handling this surge of sugar. The more these factors are controlled the more the sugar will be controlled. Coronary artery disease of n ative artery of [place] heart with stable angina pectoris 01/10/2014 Overview (11/29/2016): CRNRY ATHRSCL NATVE VSSL Assessment & Plan (12/08/2021 3:52 PM CDT): Chest pain free Assessment & Plan (07/20/2021 11:17 AM [employer]): Angina contorleld on meds and cont Assessment & Plan (03/23/2021 10:44 AM CDT): Cad and angina stable and meds worwking and stay on Assessment & Plan (11/09/2020 10:18 AM CDT): Cad stable and stable chest pain on meds Assessment & Plan (07/06/2020 10:03 AM [employer]): Cad stable on meds and no chagsd in meds Assessment & Plan (04/16/2019 4:50 PM CDT): No c.o chest pain but [place] most likely poor tolerance and deconditoniing along with copd but consider st ress test to eval pending Breathing cheks [place] with mod to sever obsturctionand trial mdi's and re eval. Assessment & Plan (12/04/2018 3:40 PM CDT): Chest pain free Assessment & Plan (08/07/2018 3:20 PM [employer]): cotnrolled and without c.o Assessment & Plan (04/10/2018 6:16 PM CDT): Cad stable on meds and without c.o on dri=ugs. Stay with Assessment & Plan (11/28/2017 2:28 PM CDT): .restart asa and stay on . 81mg Vitamin D deficiency 10/27/2013 Overview (12/01/2016): Vitamin D deficiency Assessment & Plan (12/08/2021 3:53 PM CDT): Vit d up to 46 and keep meds on. Assessment & Plan (07/20/2021 11:16 AM [employer]): D at 26 qand wsil stgart 2000/50ug and take on averge 1 a day Assessment & Plan (03/23/2021 10:46 AM CDT): Check on reutrn and stay on Assessment & Plan (11/09/2020 10:21 AM CDT): Check on reutnr Obstructive sleep apnea syndrome 10/16/2013 Overview (12/01/2016): Obstructive sleep apnea syndrome Assessment & Plan (07/20/2021 11:16 AM [employer]): Uses regularly land feels helps Assessment & Plan (07/06/2020 10:04 AM [employer]): Uses cpap ref and makies him feels heops Periodic limb movement disorder 10/16/2013 Overview (12/01/2016): Periodic limb movement disorder Resolved Problems Problem Noted Date Diagnosed Date Resolved Date Encounter for screening colonoscopy 03/06/2024 04/21/2024 Encounter for colonoscopy du e to history of adenomatous colonic polyps 03/06/2024 04/21/2024 Encounter for colonoscopy du e to history of adenomatous colonic polyps 03/06/2024 09/01/2024 Crushing injury of left leg, subsequent encounter 12/16/2021 08/13/2023 COPD exacerbation 11/23/2021 12/08/2021 Assessment & Plan (11/23/2021 10:01 AM CDT): With ch ronic issue and uri set angelika the copd will give course of steroids and restart flonase watch diet for sugar effects cxr if nto better or worse Morbid obesity with BMI of 40.0-44.9, adult 11/23/2021 02/09/2023 Assessment & Plan (12/08/2021 3:52 PM CDT): Morbid obesity is a bmi of 40 or more. Targeted weight loss with portion controll(calorie restriction) ,increased basal activity Levels along with adding an exercise program to lead to gradual weight loss,.Any program of change from weight watchers. To nutra system along with others work. Assessment & Plan (11/23/2021 10:04 AM CDT): Morbid obesity is a bmi of 40 or more. Targeted weight loss with portion controll(calorie restriction) ,increased basal activity Levels along with adding an exercise program to lead to gradual weight loss,.Any program of change from weight watchers. To nutra system along with others work. BMI 38.0-38.9,adult 07/06/2020 11/10/19 Assessment & Plan (07/06/2020 10:08 AM [employer]): Work to drop some wt Simple chronic bronchitis 04/16/2019 Assessment & Plan (07/20/2021 11:16 AM [employer]): Cough sessentially gone and uses meds Assessment & Plan (03/23/2021 10:42 AM CDT): No cough Breathing good and not aware of any isues Assessment & Plan (11/09/2020 10:18 AM CDT): Stable copd Assessment & Plan (07/06/2020 10:05 AM [employer]): Stable and off cig helps to prevent stable state Assessment & Plan (05/27/2019 4:29 PM CDT): Clinical response to the inhaler advair. fvc 86 and Ws 85 , fev1 49 and was 55 and fev1% 46. Will do prednisone trial 60 mg for 5 days. Taper 1/2 pill ever 2 days and recheck Watch [place].recheck cecy. Can justify pushing inhalers if see reponce. Assessment & Plan (04/16/2019 4:52 PM CDT): 30 yrs smoked and off 5. [place] with fvc at 4.3 and 85% amd fev1 2.3 and 55% and fev1% 53% ,pd severe pbstrictove def/ cxr l4/18 neg for emphasema. Trial advair 250 bid and rinse and prn alburterol and repeat cecy in 5 wks and re eval. Given how good d.m is might try prednisone pulse for one time to help clear what can And re eval pending inhaler trial Cellulitis of left foot 01/25/201807/27 Assessment & Plan (04/10/2018 6:23 PM CDT): mjuch better withlorenza and tonia And complete Assessment & Plan (01/25/2018 8:21 AM CDT): Continue with Bactrim to which I extended the course out for 2 full week course as seeming to improve. Follow-up there is any worsening or little improvement symptoms as patient was educated in regard to signs and symptoms indicating need to follow back up in office if the rash worsens or certainly if it persist. Cough 11/28/2017 04/10/2018 Assessment & Plan (11/28/2017 2:31 PM CDT): Cough present 6 wks and gradually better to all but gone and reappeared last wk. Clear lungs but if not going away then want to xray chest. Not smoked for 5 yr but still increased risk for lulng scarring.cancer. Etc.seeing lico in about 6 wks and report on cough and would probably get a cxr then if hanging on Abnormal liver function 11/28/201707/27 Assessment & Plan (04/10/2018 6:24 PM CDT): With diet a great drop in alt to 60 from above 100 and ast . congt with diet Assessment & Plan (11/28/2017 2:32 PM CDT): Alt has s teadily went up with Wt and now 105. Twice upper limits. Will ask gi for option and direcgtinos IGT (impaired glucose tolerance) 06/18/2017 11/28/2017 Assessment & Plan (06/18/2017 2:37 PM CDT): a1cv at 5.9 and 5.6 and less nl Pain in wrist 01/16/2014 04/16/2019 Multiple-type hyperlipidemia 01/10/2014 08/07/2018 Overview (11/29/2016): MIXED HYPERLIPIDEMIA Assessment & Plan (11/28/2017 2:27 PM CDT): ldl at 87 and stay here with meds. Your cholesterol in the form of ldl (bad) cholesterol,hdl(good) cholesterol and triglycerides are monitored. The triglycerides respond to reduction/controll of your simple carbs/sugars In such items as sugared soda/sweet tea along with fruit juices(containing natural sugar) even if no added sugar is added. LDL cholesterol is reduced with reducing daily intake of fats and rashard. saturated fats. The monosaturated fats like olive oil are not harmful except in the calories they contained. Whole milk cheese needs to be remembered along with whole milk products And limited. Assessment & Plan (06/18/2017 2:38 PM CDT): ldl at 91 and less then 100 ttarget. On atorvastin 90. Your cholesterol in the form of ldl (bad) cholesterol,hdl(good) cholesterol and triglycerides are monitored. The triglycerides respond to reduction/controll of your simple carbs/sugars In such items as sugared soda/sweet tea along with fruit juices(containing natural sugar) even if no added sugar is added. LDL cholesterol is reduced with reducing daily intake of fats and rashard. saturated fats. The monosaturated fats like olive oil are not harmful except in the calories they contained. Whole milk cheese needs to be remembered along with whole milk products And limited. Sleep apnea 01/10/2014 06/18/2017 Overview (11/29/2016): Sleep apnea Abnormal glucose tolerance test (GTT) 01/10/2014 06/18/2017 Overview (11/29/2016): IMPAIRED ORAL GLUCSE CATRACHITO Disorder of lipid metabolism 01/10/2014 06/18/2017 Overview (12/01/2016): Steatosis Tobacco dependence syndrome 01/10/2014 06/18/2017 Overview (12/01/2016): TOBACCO USE DISORDER Narcolepsy with cataplexy 12/04/2013 Overview (12/01/2016): Narcolepsy and cataplexy Hypersomnia 10/16/2013 06/18/2017 Overview (11/29/2016): Hypersomnia Class 2 obesity with body ma ss index (BMI) of 39.0 to 39.9 in adult 10/16/2013 11/23/2021 Overview (12/01/2016): Obesity Assessment & Plan (07/20/2021 11:17 AM [employer]): Work to dcontroll as going up Assessment & Plan (03/23/2021 10:44 AM CDT): Wt loss and Exp[ect to see bp and sugar drop more and sugar has so keep up and leave meds same Assessment & Plan (11/09/2020 10:20 AM CDT): Morbid obesity is a bmi of 40 or more. Targeted weight loss with portion controll(calorie restriction) ,increased basal activity Levels along with adding an exercise program to lead to gradual weight loss,.Any program of change from weight watchers. To [employer] system along with others work. Encounters Date Type Department Care Team Description 08/21/2025 Nurse Triage [facility] Primary [facility] at [address] [place] [address] Lico Sherwood PA from Last 3 Months Immunizations Immunization Administration Dates Next Due Influenza, Unspecified 09/01/2024(Deferr ed: Patient Refused),05/27/2024(Deferred: Patient Refused),05/05/2024(Deferred: Patient Refused),08/13/2023(Deferred: Patient Refused),05/27/2023(Deferred: Patient Refused),05/27/2023(Deferred: Patient Refused),05/27/2023(Deferred: Patient Refused),05/27/2023(Deferred: Patient Refused),05/27/2022(Deferred: Patient Refused),11/09/2020(Deferred: Patient Refused),07/06/2020(Deferred: Patient Refused),05/27/2020(Deferred: Patient Refused),02/26/2020(Deferred: Patient Refused),09/12/2019(Deferred: Patient Refused),08/21/2019(Deferred: Patient Refused),06/11/2019(Deferred: Patient Refused),05/27/2019(Deferred: Patient Refused),05/27/2019(Deferred: Patient Refused),05/27/2019(Deferred: Patient Refused),05/27/2019(Deferred: Patient Refused),05/27/2019(Deferred: Patient Refused),04/16/2019(Deferred: Patient Refused),08/07/2018(Deferred: Patient Refused - moved from [facility]),05/27/2018(Deferred: Patient Refused),05/27/2018(Deferred: Patient Refused),05/27/2018(Deferred: Patient Refused),05/27/2018(Deferred: Patient Refused),05/27/2018(Deferred: Patient Refused) TD Preservative Free 09/11/2013 Td, adsorbed 09/01/2024 Tdap 04/23/2009 Surgical History Surgery Date Site/Laterality Comments OTHER SURGICAL HISTORY cardiac cath 03/07/2010 CHOLECYSTECTOMY 08/27/2008 - 08/26/2009 Cholecystectomy OTHER SURGICAL HISTORY GALLBLADDER REMOVED 2008 COLONOSCOPY 03/24/2015 POLYPECTOMY TONSILLECTOMY FINGER SURGERY left hand small finger CARPAL TUNNEL RELEASE Bilateral Medical History Medical History Date Comments Arthritis Arthritis Hx Other Medical Headache, migra ine Hyperlipidemia Hyperlipidemia Hx Other Medical GI Gastroesophageal reflux disease GERD Hx Other Medical 02/22/2010 amh er chest pa in,nase[place],sweating Hx Other Medical Gallbladder Rem oval Hypertension Hypertension Tension headache Headache, tensi on Hx Other Medical carpal tunnel s urgery Sleep apnea Colon polyp Lung disease Type 2 diabetes mellitus Family History Medical History Relation Name Comments Heart disease Brother 2 Heart disease; Hypertension Brother 3 Hypertension; Bladder Cancer Father Cancer -bladd er; Cancer Father Cancer; Diabetes Father Diabetes mellit us; Migraines Father Migraine; Stroke Father Stroke; Diabetes Mother Diabetes mellit us; Hypertension Mother Hypertension; Stroke Mother Stroke; Hypertension Other Family history of Hypertension; Relation Name Status Comments Brother 1 Brother 2 Brother 3 Father Mother Other Social History Tobacco Use Types Packs/Day Years Used Date Smoking Tobacco: Former Cigarettes 1 27 S tarted: 08/27/1984 Smokeless Tobacco: Former Tobacco Cessation:Counseling Given: Not Answered Alcohol Use Standard Drinks/Week Comments Yes 0 [...] on file Legal Sex Male 11:24 PM [employer] Gender Identity Not on file Sexual Orientation Not on file Last Filed Vital Signs Vital Sign Reading Time Taken Comments Blood Pressure 106/64 05/08/2025 8:40 AM CDT Pulse 71 05/08/2025 8:30 AM CDT Temperature 36.6 C (97.9 F) 05/08/2025 8:30 AM CDT Respiratory Rate 16 05/08/2025 8:30 AM CDT Oxygen Saturation 96% 05/08/2025 8:30 AM CDT Inhaled Oxygen Concentration - - Weight 123.9 kg (273 lb 3.2 oz) 05/08/2025 8:30 AM CDT Height 180.3 cm (5' 11) 05/08/2025 8:30 AM CDT Body Mass Index 38.1 05/08/2025 8:30 AM CDT Plan of Treatment Scheduled Procedures Name Priority Associated Diagnoses Date/Ti me COLONOSCOPY History of colon polyps Encounter for screening colonoscopy Health Maintenance Due Date Last Done Comments Pneumococcal vaccine <65 (1 of 2 - PCV) 1985 Zoster Vaccine (1 of 2) 2016 Covid-19 Vaccine (3 - 2024-2 6 season) 2025 04/13/2021, 03/23/2021 Influenza Vaccine (#1) 2025 Prostate Cancer Screening-PSA 08/16/2025, 07/13/2023, 12/06/2021, Additional history exists Regular Well Visit/Exam 18-64 09/01/2025, 08/13/2023, 08/10/2022, Additional history exists Lung Cancer Screening 10/10/2025 10/09/2024 Hemoglobin A1C 10/30/2025 05/02/2025, 05/0 10/2024, 08/16/2024, Additional history exists Foot Exam 12/31/2025 12/31/2024, 01/25, 12/08/2021, Additional history exists Albumin Creatinine Ratio, Urine 05/02/2026 05/02/2025, 12/27/2024, 04/21/2024, Additional history exists Lipid Panel 05/02/2026 05/02/2025, 10/2024, 04/21/2024, Additional history exists eGFR 05/02/2026 05/02/2025, 10/2024, 08/16/2024, Additional history exists Depression Screening 05/08/2026 05/08/2025, 12/31/2024, 09/01/2024, Additional history exists Dilated Eye Exam 03/26/2027 03/26/2025, 03/13/2024 Colon Cancer Screening-Colonoscopy 06/19/2027 06/19/2024, 01/15/2019, 01/19/2017, Additional history exists DTaP/Tdap/Td Vaccine (4 - Td or Tdap) 09/01/2034 09/01/2024, 09/11/2013, 04/23/2009 Hepatitis C Screening Completed 04/03/2018 , 03/01/2015, 10/29/2014 Hepatitis B Screening Completed 04/21/2024 Colon Cancer Screening-CT Colonography Discontinued 06/19/2024, 01/15/2019, 01/19/2017, Additional history exists Colon Cancer Screening-DNA Stool Discontinued 06/19/2024, 01/15/2019, 01/19/2017, Additional history exists Colon Cancer Screening-FIT Discontinued 06/19, 01/15/2019, 01/19/2017, Additional history exists Colon Cancer Screening-Sigmoidoscopy Discontinued 06/19/2024, 01/15/2019, 01/19/2017, Additional history exists Goals Goal Patient Goal Type Associated Problems [...] and out of car with less pain Procedures Procedure Name Priority Date/Time Associated Diagnosis Comments EGFR Routine 05/02/2025 7:57 AM CDT Hypertension associated with diabetes (HCC) Coronary artery disease of [place] artery of [place] heart with stable angina pectoris Type 2 diabetes mellitus with hyperlipidemia (HCC) Pure hypercholesterolemia HEMOGLOBIN A1C Routine 05/02/2025 7:57 AM CDT Hypertension associated with diabetes (HCC) Coronary artery disease of [place] artery of [place] heart with stable angina pectoris Type 2 diabetes mellitus with hyperlipidemia (HCC) Pure hypercholesterolemia LIPID PANEL Routine 05/02/2025 7:57 AM CDT Hypertension associated with diabetes (HCC) Coronary artery disease of [place] artery of [place] heart with stable angina pectoris Type 2 diabetes mellitus with hyperlipidemia (HCC) Pure hypercholesterolemia ALBUMIN CREATININE RATIO, URINE Routine 05/02/2025 7:57 AM CDT Hypertension associated with diabetes (HCC) Coronary artery disease of [place] artery of [place] heart with stable angina pectoris Type 2 diabetes mellitus with hyperlipidemia (HCC) Pure hypercholesterolemia DIABETIC EYE EXAM Routine 03/26/2025 CT LUNG CANCER SCREENING Schedule Routine, Read Routine (OP Routine) 10/09/2024 4:47 PM [employer] Personal history of nicotine dependence PSA SCREEN Routine 08/16/2024 8:58 AM [employer] Screening PSA (prostate specific antigen) COLONOSCOPY 06/19/2024 12:40 PM CDT HEPATITIS PANEL, ACUTE Routine 04/03/2018 7:10 PM CDT Elevated LFTs from Last 3 Months or Most Recently Relevant to Health Maintenance Results * eGFR (05/02/2025 7:57 AM CDT) eGFR 88 >=60 mL/min/1. 73 m2 Comment: Interpretive Data Reference Interval Normal >/= 90 mL/min/1.73m2 Mildly decreased* 60 - 89 mL/min/1.73m2 Mildly to moderately decreased 45 - 59 mL/min/1.73m2 Moderately to severely decreased 30 - 44 mL/min/1.73m2 Severely decreased 15 - 29 mL/min/1.73m2 Kidney Failure < 15 mL/min/1.73m2 *Relative to young adult level Estimated glomerular filtration rate is determined by the 2020 CKD-EPI equation recommended by the National Kidney Foundation (A Unifying Approach to GFR Estimation: Recommendations of the NKF-ASK Task Force on Reassessing the Inclusion of Race in Diagnosing Kidney Disease, JASN 2020). The CKD-EPI equation should not be used for patients with unstable renal function and has not been validated in children and those over 70. Current interpretive data was last reviewed 2021. Blood 05/02/2025 7:57 AM CDT 05/02/2025 8:56 AM CDT us Lico WHEAT LAB BLOOD ORDERABLES Fi nal Result Performing Organization Address [facility] [address]/ZIP Co de Phone Number [facility] ([place]) [address] [facility] [employer] [place] [address] * Albumin Creatinine Ratio, Urine (05/02/2025 7:57 AM CDT) Albumin Ur <12.0 mg/L Comment: Interpretive Data No reference range established. Current interpretive data was last revised 2019. Testing performed by: [facility], [address] [place] [address]., [id number] Creatinine Ur 114.2 mg/dL [facility] ([place]) Comment: Interpretive Data No reference range established. Current interpretive data was last revised 2019. Testing performed by: [facility], [address] [place] [address]., [id number] Albumin Creatinine Ratio, Ur <11 1 - 29 mg/g [facility] ([place]) Comment:Testing performed by : [facility], [address] [place] [address]., [id number] Urine 05/02/2025 7:57 AM CDT 05/02/2025 11:16 AM CDT Lico WHEAT LAB URINE ORDERABLES Fi nal Result Performing Organization Address City/[facility] [address]/ZIP Co de Phone Number [facility] ([place]) [address] [facility] [place] [address] * (ABNORMAL) Hemoglobin A1c (05/02/2025 7:57 AM CDT) Hgb A1C 6.4(H) 4.0 - 5.6 % [facility] ([place]) Estimated Average Glucose 137 mg/dL [facility] ([place]) Comment: The ADA recommends reporting an estimated Average Glucose (eAG) with all Hemoglobin A1c results using the equation derived from a study of 507 normal and diabetic adults. Minority populations were underrepresented and children were not included. (Diabetes Care 31:0868-5073, 2008). The eAG is not equivalent to a fasting glucose. Testing performed by: [facility], [facility], [place], [address] Blood 05/02/2025 7:57 AM CDT 05/02/2025 8:56 AM CDT us Lico WHEAT LAB BLOOD ORDERABLES Fi nal Result [facility] ([place]) [address] [facility] [place] [address] * (ABNORMAL) Lipid panel (05/02/2025 7:57 AM CDT) Cholesterol 104 30 - 199 mg/dL [facility] ([place]) Comment: Interpretive Data Ages < or = 19 years Acceptable: <170 mg/dL Borderline high: 170-199 mg/dL High: >or= 200 mg/dL Ages > or = 20 years Desirable: <200 mg/dL Borderline high: 200-239 mg/dL High: >or= 240 mg/dL Literature References: 1. Expert Panel on Integrated Guidelines for Cardiovascular Health and Risk Reduction in Children and Adolescents. Pediatrics 2011;128:S213 2. NCEP Expert Panel. Circulation 2004;110:227 Current Interpretive Data was last revised on 2018. Triglycerides 96 <=149 mg/dL [facility]LL MEDRANO ([place]) Comment: Interpretive Data Ages < or = 9 years Acceptable: <75 mg/dL Borderline high: 75-99 mg/dL High: >or= 100 mg/dL Ages 10 to 20 years Acceptable: <90 mg/dL Borderline high: 90-129 mg/dL High: >or= 130 mg/dL Ages > or = 20 years Desirable: <150 mg/dL Borderline high: 150-199 mg/dL High: 200-499 mg/dL Very high: >or= 499 mg/dL Literature References: 1. Expert Panel on Integrated Guidelines for Cardiovascular Health and Risk Reduction in Children and Adolescents. Pediatrics 2011;128:S213 2. NCEP Expert Panel. Circulation 2004;110:227 Current Interpretive Data was last revised on 2018. HDL 37(L) >=40 mg/dL [facility]) Comment: Interpretive Data Ages < or = 19 years Acceptable: >45 mg/dL Borderline low: 40-45 mg/dL Low: <40 mg/dL Ages > or = 20 years Desirable: >or= 60 mg/dL Low: <40 mg/dL Literature References: 1. Expert Panel on Integrated Guidelines for Cardiovascular Health and Risk Reduction in Children and Adolescents. Pediatrics 2011;128:S213 2. NCEP Expert Panel. Circulation 2004;110:227 Current Interpretive Data was last revised on 2018. LDL, calculated 49 <=129 mg/dL [facility]LL MEDRAN[facility] ([place]) Comment: Interpretive Data Ages < or = 19 years Acceptable: <110 mg/dL Borderline high: 110-129 mg/dL High: >or= 130 mg/dL Ages > or = 20 years Optimal: <100 mg/dL Near optimal: 100-129 mg/dL Borderline high: 130-159 mg/dL High: >160 mg/dL Calculated using the Slava LDL-C estimating equation. This equation was implemented on 2024. Prior to this date LDL-C was estimated using the Friedewald equation. Literature References: 1. Expert Panel on Integrated Guidelines for Cardiovascular Health and Risk Reduction in Children and Adolescents. Pediatrics 2011;128:S213 2. NCEP Expert Panel. Circulation 2004;110:227 3. Slava Rodas et al. ONUR Cardiol. 2020 December 25;5(5):540-548. doi: 10.1001/jamacardio.2020.0013 Current Interpretive Data was last revised on 2024. Testing performed by: [facility], [facility], [place], [address] Non-HDL Cholesterol 67 mg/dL [facility]BELL MEDRANO ([place]ATI) Comment: Interpretive Data Ages < or = 19 years Acceptable: <120 mg/dL Borderline high: 120-144 mg/dL High: >145 mg/dL Ages > or = 20 years When triglycerides are >200 mg/dL, Non-HDL cholesterol is a secondary target of therapy with treatment goals that are 30 mg/dL greater than the LDL cholesterol target. Literature References: 1. Expert Panel on Integrated Guidelines for Cardiovascular Health and Risk Reduction in Children and Adolescents. Pediatrics 2011;128:S213 2. NCEP Expert Panel. Circulation 2004;110:227 Current Interpretive Data was last revised on 2018. Testing performed by: [facility], [place], [address] Chol/HDL ratio 3 KHARI MEDRANO ([place]) Comment:Testing performed by : [place], [address] Blood 05/02/2025 7:57 AM CDT 05/02/2025 8:56 AM CDT [facility] BLOOD ORDERABLES Fi nal Result C[facility]BELL MARCELA ([place]) [facility] Department [place] [address] * Diabetic Eye Exam (03/26/2025) 03/26/2025 Historical Provider HEALTH MAINTENANCE Final Result * CT Lung Cancer Screening (10/09/2024 4:47 PM FARMWORKER GRAIN) Anatomical Region Laterality Modality Chest N/A Computed Tomogra phy 10/09/2024 6:08 PM FARMWORKER GRAIN Narrative 10/09/2024 6:13 PM FARMWORKER GRAIN EXAM DESCRIPTION: CT LUNG CANCER SCREENING REASON FOR STUDY: Screening CT of the chest in a former smoker with a 27 pack year smoking history. Additional history: None. TECHNIQUE: Low dose CT scan of the chest was performed without intravenous contrast using helical scanning technique. The exam extends from the lung apices through the lung bases. Automatic exposure control was used as a dose optimization technique. NOTE: This study was performed for the specific purposes of lung cancer screening and is not an alternative to diagnostic chest CT. RADIATION DOSE: CT dose index volume (CTDIvol) = 2.27 mGy COMPARISON: Chest radiograph 12/19/2017 FINDINGS: SMOKING RELATED LUNG DISEASE: Mild bilateral emphysema. LUNG NODULES: No suspicious pulmonary nodule CORONARY ARTERY CALCIFICATION: Present OTHER: No focal consolidation, pleural effusion or pneumothorax. Normal-sized heart without pericardial effusion. Normal caliber of the great vessels. Atherosclerotic calcification of the aorta and coronary arteries. No pleural effusion. No thoracic lymphadenopathy. Visualized upper abdomen demonstrates no acute findings. No suspicious osseous findings. IMPRESSION: No suspicious pulmonary nodule. Lung-RADS category 1: Negative. Recommendation: Low dose Screening CT of chest in 12 months. THIS IS AN ELECTRONICALLY VERIFIED FINAL REPORT 10/09/2024 6:13 PM - Electronically signed by Karla Reed M.D. FT: FT Report ID: [id number] Reading Location: [place] [address] Procedure Note Karla Arias MD - 10/09/2024 EXAM DESCRIPTION: CT LUNG CANCER SCREENING REASON FOR STUDY: Screening CT of the chest in a former smoker with a27 pack year smoking history. Additional history: None. TECHNIQUE: Low dose CT scan of the chest was performed without intravenous contrast using helical scanning technique. The exam extends from the lung apices through the lung bases. Automatic exposure control was used as adose optimization technique. NOTE: This study was performed for the specific purposes of lung cancer screening and is not an alternative to diagnostic chest CT. RADIATION DOSE: CT dose index volume (CTDIvol) = 2.27 mGy COMPARISON: Chest radiograph 12/19/2017 FINDINGS: SMOKING RELATED LUNG DISEASE: Mild bilateral emphysema. LUNG NODULES: No suspicious pulmonary nodule CORONARY ARTERY CALCIFICATION: Present OTHER: No focal consolidation, pleural effusion or pneumothorax. Normal-sized heart without pericardial effusion. Normal caliber of thegreat vessels. Atherosclerotic calcification of the aorta and coronary arteries.No pleural effusion. No thoracic lymphadenopathy. Visualized upper abdomen demonstrates no acute findings. No suspicious osseous findings. IMPRESSION: No suspicious pulmonary nodule. Lung-RADS category 1: Negative. Recommendation: Low dose Screening CT of chest in 12 months. THIS IS AN ELECTRONICALLY VERIFIED FINAL REPORT 10/09/2024 6:13 PM - Electronically signed by Karla Reed M.D. FT: FT Report ID: [id number] Reading Location: [place] [address] PROCEDURES Final Result * PSA screen (08/16/2024 8:58 AM [employer]ARMWORK[employer]IN) PSA-Total 0.36 <=3.90 ng/mL Comment: Interpretive Data AGE SEX REFERENCE INTERVAL 0 minutes-150 years Female None 0 minutes-49 years Male None 50-59 years Male 0-3.90 60-69 years Male 0-5.40 70-79 years Male 0-6.20 80-150 years Male 0-6.20 The Kristy PSA Total assay procedure was used. Results from different manufacturers or methods may not be comparable. Serial testing should be performed using the same method. Current interpretive data last revised 21. Blood 08/16/2024 8:58 AM FARMWORK[employer]IN 08/16/2024 10:13 AM [employer]ARMWORK[employer]IN [facility] BLOOD ORDERABLES Fi nal Result [facility] [place]) [facility] Department [place] [address] * Colonoscopy (06/19/2024 12:40 PM CDT) Anatomical Region Laterality Modality Other Narrative Procedure Note Rosibel Zuniga MD - 06/19/2024 12:40 PM CDT ENDOSCOPY LAB Patient Name: Luis Manuel Parada Procedure Date: 06/19/2024 12:40PM Date of : 1965 Admit Type: Outpatient Age: 58 Gender: Male Attending MD: Rosibel Zuniga M.D. Room: [facility] ENDOSCOPY ROOM 01 Note Status: Finalized Procedure: Colonoscopy Indications: High risk colon cancer surveillance: Personalhistory of colonic polyps, Last colonoscopy: December 2018 Providers: Rosibel Zuniga M.D. Referring MD: Lico Sherwood PA-C Medicines: Monitored Anesthesia Care Complications: No immediate complications. Estimated Blood Loss: Estimated blood loss was minimal. Procedure: Pre-Anesthesia Assessment: - Prior to the procedure, a History and Physicalwas performed, and patient medications, allergies and sensitivities were reviewed. The patient'stolerance of previous anesthesia was reviewed. The benefits, risks and alternatives of theprocedure and sedation were discussed and informed consentwas obtained. All questions were answered. Please referto the signed informed consent document in the medical record. The scope was passed under direct vision.The [id number] was introduced through the anusand advanced to the cecum, identified by appendiceal orifice and ileocecal valve. The colonoscopy was performed without difficulty. The patient tolerated the procedure well. Colowrap was utilized for the procedure. The quality of the bowel preparation was evaluated using the BBPS (Boulevard Bowel Preparation Scale) with scores of: Right Colon = 3, Transverse Colon = 3 and Left Colon = 3 (entire mucosa seenwell with no residual staining, small fragments of stoolor opaque liquid). The total BBPS score equals 9. The bowel preparation used was SUPREP via split dose instruction. AI Technology was utilized during the procedure to aid in polyp detection. Findings: The perianal and digital rectal examinations were normal. Multiple diverticula were found in the sigmoid colon. A 4 mm polyp was found in the ascending colon. The polyp was sessile. The polyp was removed with a cold snare. Resection and retrieval were complete. Two sessile polyps were found in the transverse colon. The polypswere 4 to 8 mm in size. These polyps were removed with a cold snare.Resection and retrieval were complete. A 5 mm polyp was found in the sigmoid colon. The polyp was sessile.The polyp was removed with a cold snare. Resection and retrieval were complete. The entire examined colon appeared normal on direct and retroflexion views. Impression: - Diverticulosis in the sigmoid colon. - One 4 mm polyp in the ascending colon, removedwith a cold snare. Resected and retrieved. - Two 4 to 8 mm polyps in the transverse colon, removed with a cold snare. Resected andretrieved. - One 5 mm polyp in the sigmoid colon, removed witha cold snare. Resected and retrieved. - The entire examined colon is normal on direct and retroflexion views. Recommendation: - The patient will be observed post-procedure,until all discharge criteria are met. - Await pathology results. - Repeat colonoscopy in 3 - 5 years forsurveillance based on pathology results. - Biopsy results are typically available within 7-10 days and you will be contacted with the results. If you have not recieved your results within this timeframe, please call [phone] regarding your results. - Contact Information: During normal business hours - Please call theNurse Coordinator: [phone] After hours, evening, nights, weekends and holidays- Please call the hospital wet milling wheel operator at and ask for the GI fellow nutritional services host. - . Attending Participation: I personally performed the entire procedure. Electronically Signed By: Rosibel Zuniga M.D. Rosibel Zuniga M.D. 06/19/2024 1:25:23 PM Number of Addenda: 0 Note Initiated On: 06/19/2024 12:40 PM Rosibel Zuniga MD ENDOSCOPY PROCEDURES Fin al Result * Hepatitis panel, acute (04/03/2018 7:10 PM CDT) Hep A IgM Negative Negative [facility] Hep B core IgM Negative Negative [facility] Hep C Ab Negative Negative [facility] HepBsAg Negative Negative [facility] Blood specimen (specimen) 04/03/2018 7:10 PM CDT 04/03/2018 7:14 PM CDT Narrative [facility] - 04/03/2018 9:24 PM CDT [facility] MICROBIOLOGY - GENE RAL ORDERABLES Final Result Performing Organization Address City/State/[facility] [place] de Phone Number [facility] [address] [address] Department [place] [address] from Last 3 Months or Most Recently Relevant to Health Maintenance Insurance [facility] [address] [facility] [employer] CHOICE PLUS WORKERS COMPENSATION GENERIC Advance Directives For more information, please contact: [phone] * Full Code (Latest Code Status on File) Date Activated Date Inactivated Comments 06/19/2024 11:14 AM 06/19/2024 6:11 PM * Full Code Date Activated Date Inactivated Comments 01/15/2019 7:46 AM 01/15/2019 3:00 PM * Full Code Date Activated Date Inactivated Comments 01/15/2019 7:46 AM 01/15/2019 7:46 AM Care Teams Structural Layout Worker Relationship Specialty Start Date End Date Lico Sherwood PA [address] [place] [address] [place] [address] PCP - General Internal Medicine 07/18/22 Collin García DPM [address] [facility] [place] [address] Consulting Physician Foot and Ankle Surg 05/08/25 [facility] 12/31/24
[2025-08-21 12:16] VITALS: BP 109/72; PULSE 93; RESP 20; TEMP 36.2; O2SAT 100
--- NOTE | 2025-08-21 12:26 | ED_ITS ---
HPI - URI/Sore Throat General Chief Complaint: Upper Respiratory Infection Stated Complaint: Back Pain/Cough/Chest Pain/Sore Throat Time Seen by Provider: 08/21/25 12:46 Source: patient Mode of arrival: ambulatory Limitations: no limitations History of Present Illness HPI Narrative: Luis Manuel is a 59-year-old male patient presenting to the clinic today with complaints of feeling feverish, back pain, cough, chest pain, sore throat, chest congestion, and shortness of breath x3 days. Contacted his PCP and they told him to come in to be evaluated. He thinks he may have pneumonia. He has taken rysx-xsi-rvdirkr cough and cold medicine for his symptoms Related Data Home Medications ?Medication ?Instructions ?Recorded ?Confirmed ?Last Taken ?Type aspirin 81 mg tablet,delayed 81 mg PO DAILY 08/21/25 1 10/22/24 Unknown History release (Adult Aspirin Regimen) citalopram .ROUTE 08/21/25 Unknown His tory empagliflozin .ROUTE 08/21/25 Unknown His tory ezetimibe .ROUTE 08/21/25 Unknown His tory ofpauyfnvii-kwbcsjvkf-vldwrzge inhalation 08/21/25 Un known History irbesartan .ROUTE 08/21/25 Unknown His tory rosuvastatin .ROUTE 08/21/25 Unknown His tory Allergies Allergy/AdvReac Type Severity Reaction Status Date / Time iodine Allergy Unknown Unknown Verified 08/21/25 12:22 Penicillins Allergy Unknown Unknown Verified 08/21/25 12:22 Review of Systems Review of Systems: Pertinent positives per HPI. Patient denies any rash, headache, visual changes, dizziness,palpitations, nausea, vomiting, diarrhea, constipation, abdominal pain, or any urinary issues. ENT: Comments: This PMFSH Comments At the time of my signature, I reviewed and agree with the nursing past medical, surgical, social, and family history. There is no relevant family history pertinent to the patient complaint. Exam Narrative: General: Well-developed, well nourished, acutely ill appearing Head: Normocephalic, atraumatic Eyes: Pupils equally round and reactive to light bilaterally, EOM intact, sclera and conjunctive clear, no discharge, lids normal Ears: TMs intact and congested, ear canals clear, no drainage, grossly hearing normal. Nose: Nares patent, clear discharge, moderate inflammation, no sinus tenderness. Mouth: Oral pharynx red without lesions or masses, good dentition, MMM. Postnasal drip Neck: Supple, trachea midline, no enlargement of anterior or posterior cervical nodes, no thyroid masses or goiter palpable. Cardio: Regular rate and rhythm, s1 and s2 normal, no murmur appreciated. Resp: Clear to auscultation bilaterally, no rhonchi, rales, wheezing or rubs Course Course Level of Care: Express Care Visit Vital Signs Vital signs: Vital Signs Temperature 36.2 C L 08/21/25 12:16 Pulse Rate 93 08/21/25 12:16 Respiratory Rate 20 08/21/25 12:16 Blood Pressure 109/72 08/21/25 12:16 Pulse Oximetry 100 08/21/25 12:16 Oxygen Delivery Room Air 08/21/25 12:16 Temperature 36.2 C L 08/21/25 12:16 Pulse Rate 93 08/21/25 12:16 Respiratory Rate 20 08/21/25 12:16 Blood Pressure 109/72 08/21/25 12:16 Pulse Oximetry 100 08/21/25 12:16 Oxygen Delivery Room Air 08/21/25 12:16 MDM MDM Narrative Medical decision making narrative: At the time of visit patient is resting comfortably on the exam table. Patient appears to be nontoxic. Complaints of feeling feverish, back pain, cough, chest pain, sore throat, chest congestion, and shortness of breath x3 days. Contacted his PCP and they told him to come in to be evaluated. He thinks he may have pneumonia. He has taken dvzo-uwf-cuvbcjv cough and cold medicine for his symptoms EKG: EKG shows sinus rhythm with a heart rate of 84 beats per minute without ST elevation, depression, or T-wave inversion. No comparison EKG available. Labs: COVID, influenza testing was performed. Influenza a testing was positive. COVID testing was negative. Diagnostics: Chest x-ray was performed and negative for any acute cardiopulmonary process. Plan: Patient has influenza A. Work note was given. is upset the patient is not giving anything for his symptoms. At this is a viral illness and antibiotics are not needed. All test were explained/reviewed with the patient and the in the voiced understanding. Supportive measures were discussed with the patient and they voiced understanding discharge instructions and agrees to treatment plan. Return precautions reviewed Differential Diagnosis Differential Diagnosis: Differential diagnostic considerations for upper respiratory infection include upper respiratory infection, croup, otitis media, sinusitis, viral infection, bronchitis, influenza, pharyngitis, strep, uvulitis, pneumonia Lab Data Labs: Lab Results 08/21/25 Range/Units 12:48 POC Influenza A Ag Positive (Negative) POC Influenza B Ag Negative (Negative) POC SARS CoV-2 Ag Negative (Negative) Imaging Data Radiologist's impression: ITS Impressions Chest X-Ray 08/21/25 12:43 IMPRESSION: 1. No acute cardiopulmonary disease. [address] [employer] [place] [id number] XRay Report Signed Patient: Luis Manuel Parada : 1965 MR#: [id number] Age: 59 Acct:[id number] Loc: [facility] ADM Date: 08/21/[address]: Ordering Physician: Patric Barnett APRN Date of Service: 08/21/25 Procedure(s): XR chest 2V Accession Number(s): [id number] cc: Presley, Arron WHEAT; Patric Barnett APRN~ EXAMINATION: XR chest 2V DATE: 08/21/2025 12:36 INDICATION: Cough and shortness of breath TECHNIQUE: PA and lateral views of the chest were obtained. COMPARISON: None FINDINGS: The lungs are clear with no focal airspace opacities, pulmonary edema, pleural effusion or pneumothorax. The cardiomediastinal silhouette is normal. Mild thoracic kyphosis with moderate spondylosis and mild anterior wedging of a few lower thoracic vertebral bodies. Likely cholecystectomy clips in the upper abdomen. IMPRESSION: 1. No acute cardiopulmonary disease. Reviewed, dictated and finalized at location A. GEMENT TRAINER Please be advised this is a medical document. It is intended for vtqt-lg-mfbw communication. It is written in medical language and may contain unfamiliar abbreviations or verbiage. Medical documents are intended to carry relevant information, facts as evident, and the clinical opinion of the practitioner at the time of the encounter. This report may have been done utilizing a voice recognition system. Attempts have been made to correct errors. However, there may be uncorrected grammatical, spelling, and recognition errors present. The file time of this note does not necessarily represent the time of service. Dictated By: Dillon Gomez MD 08/21/25 1243 Signed By: <Electronically signed by Dillon Gomez MD in OV> 08/21/25 1243 ECG Data EKG #1: Attestation: I personally reviewed and interpreted this ECG as follows: ECG completion date: 08/21/25 ECG completion time: 12:40 Prior ECG tracings: not available for review Interpretation: EKG shows normal sinus rhythm with heart rate of 84 beats per minute without ST elevation, depression, or T-wave inversion. CA interval is 155 milliseconds, QRS durations 94 milliseconds, QT-QTC is 359-400 milliseconds, P-R-T axis is 50 -7 29 Discharge Plan Discharge Clinical Impression: Influenza A Patient Disposition: Home Condition: Stable Instructions: Antibiotic Form, Influenza (ED) Additional Instructions: EKG is reassuring in the clinic today Chest x-rays negative for any acute cardiopulmonary process Lung sounds are clear and oxygen saturations 100% on room air COVID testing was negative No sign of bacterial infection in the clinic today Influenza testing was positive for influenza A May take DayQuil/NyQuil for cold/flu symptoms Increase fluids and stay well hydrated May take Tylenol or motrin as directed on bottle for pain/fever May use Flonase 1 spray in each nare daily May take OTC antihistamines such as Zyrtec or Claritin daily as directed on bottle May apply Vicks vapor rub to chest to open sinuses Sinus rinses for congestion Cepacol spray, cough drops, throat lozenges, warm tea with honey/lemon, gargle salt water to soothe throat BRAT diet for diarrhea Clear liquids x 24 hours then advance as tolerated for nausea/vomiting Go to the ED if you develop a worsening in your condition- high fever not controlled by Tylenol or Motrin, dehydration, weakness, lethargy, shortness of breath, or chest pain. Follow up with your PCP in 3-5 days if symptoms persist. Patient Language: Gabonese Prescriptions: No Action rosuvastatin .ROUTE ezetimibe [Zetia] .ROUTE citalopram .ROUTE aspirin [Adult Aspirin Regimen] 81 mg tablet,delayed release (DR/EC) 81 mg PO DAILY irbesartan .ROUTE bvlpplepmuc-apfedxnep-dhunmrwu [Trelegy Ellipta] inhalation empagliflozin [Jardiance] .ROUTE Follow-up/Referrals: Presley,Arron Cool, PA [Primary Care Provider, Unknown] Stand Alone Forms: Work/School Release IP Time of Disposition: 13:02 Quality NIHSS Nursing Documentation ED NIHSS nursing documentation: reviewed/agree
--- NOTE | 2025-08-21 12:27 | ECG_ITS ---
Test Date: 2025-08-21 12:40:39 Measurements Intervals [place] Rate: 84 P: 50 VT: 155 QRS: -7 QRSD: 94 T: 29 QT: 359 QTc: 425 Interpretive Statements SINUS RHYTHM BASELINE ARTIFACT- I, II, AVR, AVL NORMAL ECG No previous ECG available for comparison Electronically Signed On 08-21-2025 19:59:26 MAGENTO DEVELOPER by Milton Santiago D.O.
[2025-08-21 12:49] LABS: EDCOVIDSCREEN Negative (Negative); EDINFLUASCREEN Positive (Negative); EDINFLUBSCREEN Negative (Negative)
== END 2025-08-21 13:14 | disposition home or self-care (01) ==
PROVIDERS: Emergency Provider Nurse Practitioner Family; PCP Physician Assistant
DX: J10.1 Influenza due to other identified influenza virus with other respiratory manifestations (principal); Z20.822 Contact with and (suspected) exposure to COVID-19; I10 Essential (primary) hypertension; E78.00 Pure hypercholesterolemia, unspecified; J44.9 Chronic obstructive pulmonary disease, unspecified; F41.9 Anxiety disorder, unspecified; F32.A Depression, unspecified; Z79.82 Long term (current) use of aspirin
CPT/HCPCS: 71046; 87426; 87804; 93005; 99213; G0463